=== PATIENT | female | born 1975 | race Caucasian/White ===

== ENCOUNTER → 2017-12-22 | Outpatient (CLI) | payer OTHER ==
[~2017-12-22] VITALS: Ht 162.6 cm; Wt 82.0 kg
[2017-12-22 11:07] VITALS: BP 145/97; PULSE 75; Ht 162.6 cm; Wt 82.0 kg
== END | disposition home or self-care (01) ==
LOC: C.NEUR 10:15
PROVIDERS: ATTEND Internal Medicine Pulmonary Disease
DX: G47.33 Obstructive sleep apnea (adult) (pediatric) (principal); G47.50 Parasomnia, unspecified

== ENCOUNTER → 2018-01-03 | Outpatient (CLI) | payer OTHER ==
--- NOTE | 2018-01-04 06:29 | PAP/PSG TECHNICIAN REPORT ---
[facility] Corn Cutter Polysomnogram Report Study name: None Report date: 01/04/2018 Study date: 01/03/2018 Referring Physician: Dr. Fuad Ramey DO Name: AAMIR ZAMORA Interpreting Physician: Fuad Ramey D.O. Date of : 1975 Corn Cutter: Tabatha James RPSGT. Sex: Female Age: 42 Study Type: PSG Weight: 182 lbs 15 in Height: 42 years, Height 5' 4" Neck Circum: BMI: 31.24 Medications: VENLAFAXINE 150 MG, LORAZEPAM 0.5 MG, TEGRETOL 200 MG Patient History 42 yr-old female here for a baseline study. She has a history of excessive daytime sleepiness, frequent movements during sleep, and waking up in odd positions. Her [place] scale is 19. The test was started on room air. ETCO2 testing was not utilized during this study. Room 1 Parameters Monitored NPSG: E1-M2, E2-M1, Fp1-M2, Fp2-M1, F3-M2, F4-M2, F4-M1, C3-M2, C4-M2, C4-M1, O1-M2, O2-M2, O2-M1, T3-M2, T4-M1, P3-M2, P4-M1, CHIN1, CHIN2, HR, EKG, Legs, PFLOW, SNOR, FLOW, CFLOW, Tidal Volume, THOR, ABDO, SpO2, PLTH, CPRESS, ETCO2 Wave, ETCO2, pH Sleep Architecture Sleep Stages Time at Lights Off 10:08:14 PM STAGES Time (min.) TST (%) Time at Lights On 5:31:44 AM Wake 30.5 -- Total Recording Time (TRT) 443.50 min. N1 33.5 8 Total Sleep Period (TSP) 427.0 min. N2 307.5 74 Total Sleep Time (TST) 413.0min. N3 45.0 11 Awake Time 30.5 min. REM 27.0 7 Wake after Sleep Onset 14.0 min. Sleep Efficiency (SE) 93 % Sleep Onset Latency (CIERRA) 16.5 min. Number of Stage 1 Shifts None Awakenings 21 Stage Changes 159 Number of REM periods 2 REM 27.0 7 REM Latency 131.0 min. NREM 386.0 93 Body Position Analysis Supine Right Left Side Prone Vertical Total Sleep Time (min.) 127.1 41.8 238.5 280.24 29.2 0.0 Total Sleep Time (%) 26% 10% 58% 68 6% N/A% Total Sleep Time REM (min.) 0.0 0.0 27.0 None 0.0 0.0 Total Sleep Time NREM (min.) 106.4 41.8 211.5 None 26.4 0.0 Intermittent Wake (min.) 20.8 0.5 6.4 None 2.8 0.0 Total Sleep Period (%) 26% None None None None None Arousals Myoclonus (PLM) * Events Count Index Events Count Index Spontaneous 21 3 Events Awake (PLMW) 37 72.8 Respiratory 1 0.4 Events Asleep w/ Arousal (PLMA) 42 6.1 PLM 42 6 Events Asleep w/o Arousal (PLMS) 487 70.8 Snoring 2 0 Total Asleep 529 76.9 Total 66 10 Total 566 77 Respiratory Analysis * CA OA MA CH H RERA Total Count 1 2 0 0 2 1 5 Index 0.1 0.3 0.0 0 0.3 0 0.9 Mean Duration 13.3 16.3 0.0 0.00 18.2 17.6 16.7 Longest Duration 13.3 18.8 0.0 0.00 0.0 17.6 18.8 Respiratory Event Summary Total Supine ~Supine Right Left Prone REM NREM Apneas Count 3 1 2 0 2 0 0 3 Index 0.4 1 0 0.0 0.5 0 0 0 Hypopneas (4% Desat) Count 2 0 2 1 1 0 0 2 Index 0.3 0.0 0 1.4 0.3 0.0 0.0 0.3 Apneas & All Hypopneas Count 5 1 4 1 3 0 0 5 Index 0.7 1 1 1 1 0 0.0 0.8 Respiratory Events (Stitcher Around+All Hyp+RERA) Count 5 1 5 1 3 1 0 5 Index 0.9 1 1 1.4 0.8 2.3 0.0 0.9 Respiratory Related Arousal Count 1 1 3 1 1 1 0 3 Index 0.4 0 1 1 0 2 0 0 Snoring Analysis Supine Right Left Prone REM NREM Total Snore duration 5.0 min Snores count 38 31 78 5 5 147 152 Snore mean duration 2.0 Sec Snores index 21 45 20 11 11.1 22.8 22.1 TST with snoring (%) 1.2% Desaturation Event Summary: Minimum %SpO2 Event Count Mean/Min/Max Duration(sec.) Desaturation Index % Time In Bed > 90 12 25.5 / 8.5 / 44.8 1.7 96.4 86 - 90 0 N/A 0.0 3.5 81 - 85 0 N/A 0.0 0.1 76 - 80 0 N/A 0.0 0.0 71 - 75 0 N/A 0.0 0.0 66 - 70 0 N/A 0.0 0.0 61 - 65 0 N/A 0.0 0.0 56 - 60 0 N/A 0.0 0.0 51 - 55 0 N/A 0.0 0.0 < 50 0 N/A 0.0 0.0 Total REM NREM Awake <50% 0.0 min. 0.0 min. 0.0 min. 0.0 min. 51 - 60% 0.0 min. 0.0 min. 0.0 min. 0.0 min. 61 - 70% 0.0 min. 0.0 min. 0.0 min. 0.0 min. 71 - 80% 0.0 min. 0.0 min. 0.0 min. 0.0 min. 81 - 90% 15.7 min. 0.0 min. 15.0 min. 0.6 min. 91 - 100% 422.4 min. 27.0 min. 366.9 min. 28.5 min. Average 96 98 96 95 Minimum SpO2 85 96 85 85 Desaturation Event Index 1.6 0.0 1.4 5.9 # Desat. Events below 89% 2 N/A 2 N/A Time(%) with Saturation below 89% 2.7 0.0 2.5 0.1 Time(min.) with Saturation below 89% 11.6 0.0 11.0 0.6 Time (mins) REM (mins) NREM (mins) % of TST SpO2 Below 90% 2 N/A N2 3.5 SpO2 Below 88% 1 0 0 0 Heart Rate Analysis Min (bpm) Max (bpm) Average (bpm) Awake 59 108 78 NREM 58 127 70 REM 66 83 73 Overall 58 127 71 Supplemental O2 Values Minimum O2 level: None Value Start Time End Time Corn Cutter Comments Ms. Zamora slept in the right, left, supine and prone positions. No cardiac arrhythmias were noted. PLMs were noted. No bruxism noted. Snoring was noted and scored as a 1-2 on a scale of 1 through 5. (0=no snoring, 5=snoring loud enough to be heard through a closed door or down the asencio way) She stated that she tends to move into odd positions while asleep. She did in fact sleep a couple of times with her head held totally off of the pillow as she described. She did not wake up to use the restroom during the night. Ms. Zamora stated that she slept about the same as usual. The final report will be interpreted and signed by a sleep physician. The completed physician report will then be placed in the patient medical record. Therapy (cm H2O) 0 TIB (min.) 443.5 TST (min.) 413.0 Sleep Onset (min.) 16.5 REM Onset From Sleep (min.) 131.0 Sleep Efficiency % 93 Wakefulness (%) 7 Wakefulness (min.) 30.5 NREM 1 (%) 8 NREM 1 (min.) 33.5 NREM 2 (%) 74 NREM 2 (min.) 307.5 NREM 3 (%) 11 NREM 3 (min.) 45.0 REM (%) 7 REM (min.) 27.0 # Arousals 66 Arousal Index 10 # Snore 152 Snore Index 22.1 AHI 0.7 AHI Supine 1 AHI Non-Supine 1 NREM AHI 0.8 REM AHI 0.0 RDI 0.9 # Obstructive Apnea 2 # Central Apnea 1 # Mixed Apnea 0 # Hypopneas 2 RERAs 1 Total Respiratory Events 6 Time Below SpO2 89% (min.) 11.0 Mean NREM SpO2 (%) 96 Mean REM SpO2 (%) 98 Mean Sleep SpO2 (%) 96 Min NREM SpO2 (%) 85 Min REM SpO2 (%) 96 Position Supine (min.) 127.1 Position Non-supine (min.) 306.6 LM Index Sleep 76.9 LM Index NREM 81.8 LM Index REM 6.7 Mean Heart Rate (bpm) 71 Min Heart Rate (bpm) 58
== END | disposition home or self-care (01) ==
LOC: C.NEUR 20:00
PROVIDERS: ATTEND Internal Medicine Pulmonary Disease
DX: G47.33 Obstructive sleep apnea (adult) (pediatric) (principal); G47.50 Parasomnia, unspecified